=== PATIENT | male | born 1960 | race Caucasian/White ===

== ENCOUNTER 2016-06-18 15:09 | Day surgery (SDC) | payer OTHER ==
[2016-06-18] MEDS ORDERED: LIDO/EPI 1% **Not for Epidural 20 ML MDV ONE (15:38)
[2016-06-18] MEDS ORDERED: LR 1,000 ML IV ONE (16:16)
[2016-06-18] MEDS ORDERED: MIDAZOLAM 2 MG/2 ML VIAL ONE (16:42)
[2016-06-18] MEDS ORDERED: PROPOFOL 200 MG/20 ML VIAL ONE ×2 (16:44→17:37)
[2016-06-18] MEDS ORDERED: fentaNYL 250 MCG/5 ML INJ ONE (16:45)
[2016-06-18] MEDS ORDERED: LIDOCAINE 2% 5 ML SDV ONE (16:46)
[2016-06-18] MEDS ORDERED: ONDANSETRON 4 MG/2 ML VIAL ONE (17:02)
[2016-06-18] MEDS ORDERED: DEXAMETHASONE 4 MG/ML VIAL ONE ×2 (17:02)
[2016-06-18] MEDS ORDERED: epHEDrine SULFATE 10 MG/ML SYR ONE (17:15)
[2016-06-18] MEDS ORDERED: HYDROCODONE/APAP 5/325 TAB ONE (18:49)
--- NOTE | 2016-06-18 18:58 | GOP ---
[f rep st] OPERATIVE REPORT DATE OF OPERATION: 06/18/2016 SURGEON: Khanh Cannon MD ANESTHESIA: General endotracheal. PREOPERATIVE DIAGNOSIS: 1. Nasal fracture. 2. Nasal septal deformity. 3. Inferior turbinate hypertrophy. POSTOPERATIVE DIAGNOSIS: 1. Nasal fracture. 2. Nasal septal deformity. 3. Inferior turbinate hypertrophy. PROCEDURE PERFORMED: FINDINGS: 1. Nasal fracture, treated by closed reduction with external fixation on admission. 2. Nasal septal deformity treated by nasal septal reconstruction. 3. Inferior turbinate hypertrophy treated by bilateral submucosal resection in the inferior turbinate s, with inferior turbinate out fracture. ESTIMATED BLOOD LOSS: 30 mL. DESCRIPTION OF PROCEDURE: PROCEDURE PERFORMED: Closed reduction of nasal fracture with nasal septum reconstruction and submuco adry resection of the inferior turbinate. SURGEON: Dr. Cassy Cannon. PROCEDURE: Procedure is as follows: Patient was placed on the operating table in the supine positio n. After induction of adequate general endotracheal anesthesia, sterile draping was performed. Pled gets soaked in 0.5% Jam-Synephrine and were inserted into the right and left side of the nose. In ad dition, the soft tissues overlying the nasal septum and inferior turbinates were hydro infiltrated ut ilizing 1% lidocaine with 1:100,000 parts epinephrine. These agents were given an adequate length of time to act. Attention was then directed to the nasal bone. A blunt elevator was inserted deep to the nasal bones , and by application of anterior pressure and lateral pressure the nasal bones were reduced. This re sulted in excellent alignment of the nasal bones. The attention was then directed to the nasal septu m. A left rick transection incision was created and carried down to the layer deep to the perichondr ium. A flap was atraumatically elevated in the submucoperichondrial plan on the left side of the nos e. The septum was noted to be markedly deviated into the right nasal airway, and the septal cartilag e was then incised, and a flap was elevated in a submucoperichondrial plane on the right side of the nose. Via this approach deformed septal bone and cartilage were removed. Once this had been complet ed and nasal septum was markedly straightened portions of septal cartilage were morselized and they, along with straight portions of straight nasal bone, were inserted between the septal leads. The hem itransfixion incision was then closed utilizing three 3-0 Chromic sutures. The septal leads were pola pproximated utilizing four 4-0 plain gut sutures, placed in a [id number] quilting fashion. Attention was then directed to the inferior turbinates. The inferior turbinates were hydro infiltrat ed utilizing 1% lidocaine with 100,000 parts of epinephrine. The Xomed polyp shaver utilizing a 2 mm blade was used to perform a submucosal resection of the inferior turbinate. Initially the left infe rior turbinate was addressed. A stab incision was created along its anterior aspect, and then the el evator portion of a turbinate blade was used to elevate the soft tissues of the underlying turbinate bone. Numerous passes were then made in the submucoperichondrial plane utilizing the polyp shaver, m arkedly reducing the mass of the inferior turbinate. The residual turbinate tissue was out-fractured , and an identical procedure was then performed on the right. First a submucosal resection of inferi or turbinate was performed, and then the turbinate was out-fractured. At this point, it was noted th at the right nasal bone had a tendency to re-prolapse, it therefore was re-elevated back into positio n, the nose was cleansed. Mastisol was applied, followed by Steri-Strips and a Thermoplast splint. At this point, the procedure was terminated, the patient was then awakened and transferred post anest hesia to recovery in stable condition. FLUIDS REPLACED: 800 mL. COMPLICATIONS: None. /[id number]/MODL
== END 2016-06-18 19:15 | disposition home or self-care (01) ==
LOC: FSGY 15:09
PROVIDERS: ATTEND Otolaryngology
PROC: 09RM07Z Replacement of Nasal Septum with Autologous Tissue Substitute, Open Approach (ICD-10-PCS; principal; 2016-06-18 16:45)
PROC: 09BM0ZZ Excision of Nasal Septum, Open Approach (ICD-10-PCS; principal; 2016-06-18 16:45)
PROC: 09BL0ZZ Excision of Nasal Turbinate, Open Approach (ICD-10-PCS; principal; 2016-06-18 16:45)
DX: J34.2 Deviated nasal septum (principal); J34.3 Hypertrophy of nasal turbinates; S02.2XXB Fracture of nasal bones, initial encounter for open fracture; W51.XXXA Accidental striking against or bumped into by another person, initial encounter; Y93.23 Activity, snow (alpine) (downhill) skiing, snowboarding, sledding, tobogganing and snow tubing
CPT/HCPCS: J1100; J2250; J2405; J2704; J3010